=== PATIENT | female | born 1975 ===

== ENCOUNTER → 2018-09-27 | Outpatient (REF) | payer OTHER, SELFPAY ==
[2018-09-27 13:07] LABS: CHOLESTEROL LEVEL 241 MG/DL (<200); CHOLESTEROL RISK RATIO 3.347 (<5); HDL CHOLESTEROL 72 MG/DL (>40); LDL CHOLESTEROL 152 MG/DL (<100); NON-HDL-C 169 MG/DL; TOTAL 25(OH) VITAMIN D 22.8 NG/ML (30.0-100.0); TRIGLYCERIDES LEVEL 84 MG/DL (<150)
[2018-09-27 15:17] LABS: ESTIMATED AVERAGE GLUCOSE 111 MG/DL (60-110); HEMOGLOBIN A1c 5.5 %
== END ==
LOC: M LAB REF 12:09
DX: Z00.00 Encounter for general adult medical examination without abnormal findings (principal)
CPT/HCPCS: 84443